=== PATIENT | male | born 1995 | race American Indian/Alaskan Native ===

== ENCOUNTER 2025-06-08 10:36 | Emergency (ER) | payer BC, SELFPAY ==
[2025-06-08 10:53] VITALS: BP 153/92; PULSE 86; RESP 20; TEMP 37.6; O2SAT 97; BMI 50.2
--- NOTE | 2025-06-08 12:28 | ED.GENADULT ---
HPI - General Adult General Chief complaint: Cough Stated complaint: respiratory/cough Time Seen by Provider: 06/08/25 12:17 History of Present Illness HPI narrative: Patient is a 29-year-old gentleman who has dog unfortunately likely has leptospirosis. Patient states that he has been coughing for the last 2 weeks. He is in today for further evaluation. Patient's comorbidities are minimal. He is an otherwise healthy although overweight 29-year-old man. He has had no fevers no chills no hemoptysis no nausea no vomiting. Patient has no overt shortness of breath or chest pain. Related Data Home Medications ?Medication ?Instructions ?Recorded ?Confirmed No Known Home Medications 06/08/25 06/08/25 Allergies Allergy/AdvReac Type Severity Reaction Status Date / [facility] All[facility] Rash Verified 06/08/25 10:58 Review of Systems Status of ROS: Reports: 10 or more systems reviewed and unremarkable except as noted in History and below Exam Narrative: Exam Narrative: EXAM GENERAL: Patient appears comfortable and well. EYES: No scleral icterus. LYMPH: No supraclavicular or cervical lymphadenopathy. SKIN: Visible skin seen during exam normal or with benign process only. EXT: No dependent lower extremity pedal edema. HEART: Regular rate and rhythm with no murmurs, rubs, or gallops. LUNGS: Clear to auscultation bilaterally with no crackles or wheezes. ABD: Soft, non tender, non distended. PSYCH: Good eye contact, speech is not pressured. Const: Vital Signs, click to edit/add: Vital Signs - 24 hr 06/08/25 10:53 Temperature 99.7 F H Pulse Rate [Pulse Oximeter] 86 Respiratory Rate 20 Blood Pressure [Ri ght Upper Arm] 153/92 H Pulse Oximetry 97 Oxygen Delivery Me thod Room Air Course Vital Signs Vital signs: Initial Vital Signs Temperature 99.7 F H 06/08/25 10:53 Temperature Source Oral 06/08/25 10:53 Pulse Rate 86 06/08/25 10:53 Pulse Rhythm Regular 06/08/25 10:53 Respiratory Rate 20 06/08/25 10:53 Blood Pressure 153/92 H 06/08/25 10:53 Blood Pressure Mean 112 H 06/08/25 10:53 Blood Pressure Position Sitting 06/08/25 10:53 Pulse Oximetry 97 06/08/25 10:53 Oxygen Delivery Method Room Air 06/08/25 10:53 Vital Signs Temperature 99.7 F H 06/08/25 10:53 Pulse Rate 86 06/08/25 10:53 Respiratory Rate 20 06/08/25 10:53 Blood Pressure 153/92 H 06/08/25 10:53 Pulse Oximetry 97 06/08/25 10:53 Oxygen Delivery Method Room Air 06/08/25 10:53 Temperature 99.7 F H 06/08/25 10:53 Pulse Rate 86 06/08/25 10:53 Respiratory Rate 20 06/08/25 10:53 Blood Pressure 153/92 H 06/08/25 10:53 Pulse Oximetry 97 06/08/25 10:53 Oxygen Delivery Method Room Air 06/08/25 10:53 Medical Decision Making MDM Narrative Medical decision making narrative: Patient is a 29-year-old with left us pyrosis exposure. I do not believe x-ray is indicated. I did query the lab and did appears to be do not do leptospirosis testing and blood cultures would be very unlikely to be helpful. I do think it is reasonable to put him on 7 days of doxycycline 100 mg b.i.d.. Give my card Ng follow-up with me on a p.r.n. basis. Discharge Plan Discharge Clinical Impression: Cough Patient Disposition: Home, Self-Care Condition: Stable Instructions: Acute Cough (ED) Additional Instructions: Symptomatic treatment Doxycycline as directed Follow-up with Dr. Figueroa as needed. Activity Level: No Restrictions Discharge Diet: Regular Prescriptions: No Action No Known Home Medications Stand Alone Forms: [employer] Info Instructions
--- OUTSIDE RECORDS SUMMARY | 2025-06-08 13:08 | XMS_ITS | Clinical Summary ---
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 Name Role Phone Pcp, No Primary Care Provider Unavailabl e Allergies Active Allergy Reactions Criticality Noted Date Comments Cefaclor Hives 12/22/2015 Medications No known medications Social History Tobacco Use Types Packs/Day Years Used Date Smoking Tobacco: Never Smokeless Tobacco: Never Tobacco Cessation:Counseling Given: Yes Alcohol Use Standard Drinks/Week Comments Yes 0 (1 standard drink = 0.6 oz pur e alcohol) occasional Sex and Gender Information Value Date Recorded Sex Assigned at Not on file Legal Sex Male 10:59 AM CDT Gender Identity Not on file Sexual Orientation Not on file Obstetrics History Last Filed Vital Signs Vital Sign Reading Time Taken Comments Blood Pressure 127/78 04/30/2016 3:18 PM CDT Pulse 86 04/30/2016 3:18 PM CDT Temperature 37 C (98.6 F) 04/30/2016 3:18 PM CDT Respiratory Rate - - Oxygen Saturation 99% 04/30/2016 3:18 PM CDT Inhaled Oxygen Concentration - - Weight 120.9 kg (266 lb 9.6 oz) 04/30/2016 3:18 PM CDT Height 172.4 cm (5' 7.87) 04/30/2016 3:18 PM CD T Body Mass Index 40.69 04/30/2016 3:18 PM CDT Plan of Treatment Upcoming Encounters Date Type Department Care Team (Late st Contact Info) Description 06/11/2025 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 [address] [place] [address] Gemini Mcmahon MD [address] [place] [address] Health Maintenance Due Date Last Done Comments Tetanus booster 2007 HIV for age 15-65 2011 Hepatitis C screening for ag e 18-79 2014 Hepatitis B series for 19+ ( 1 of 3 - 19+ 3-dose series) 2015 BMI (ht and wt on same day) for age 18+ 04/30/2017 04/30/2016, 12/22/2015 Depression screening for age 12+ 04/30/2017 04/30/2016 HPV series for age 9-45 (1 - 3-dose SCDM series) 2023 Influenza Vaccine (#1) 2025 RSV vaccine for adults or (1 - 1-dose 75+ series) 2071 Pneumococcal series for age 6-49 Aged Out No longer eligible b ased on patient's age to complete this topic Care Teams Primary Montessori Teacher Relationship Specialty Start Date End Date Pcp, No . PCP - General 12/22/15
--- OUTSIDE RECORDS SUMMARY | 2025-06-08 13:08 | XMS_ITS | Clinical Summary ---
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 [facility] Allergies Active Allergy Reactions Criticality Noted Date Comments Other Hives High 07/12/2024 Celecor Cephaclor. Medications clindamycin (CLEOCIN) 300 MG capsule Take 1 Capsule (300 mg) by mouth three times a day. 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 Gender Identity Not on file Sexual Orientation Not on file Plan of Treatment Health Maintenance Due Date Last Done Comments Hep C Screening (Preventive Services) 1996 HIV Screening (Preventive Services) 2012 Adult Preventive Visit 2014 DTaP/Tdap/Td Vaccine (1 - Tdap) 2015 HepB Vaccine (1) 2015 HPV Vaccine (1 - 3-dose SCDM series) 2023 COVID-19 Vaccine ( - 2023-2 5 season) 2025 Influenza Vaccine (#1) 2025 Zoster/Shingles Vaccine (1 of 2) 2046 HepA Vaccine Aged Out No longer eligi ble based on patient's age to complete this topic Hib Vaccine Aged Out No longer eligi ble based on patient's age to complete this topic IPV (Polio) Vaccine Aged Out No longe r eligible based on patient's age to complete this topic MCV4 Vaccine Aged Out No longer eligi ble based on patient's age to complete this topic Meningococcal B Vaccine Aged Out No l onger eligible based on patient's age to complete this topic Pneumococcal Vaccine Aged Out No long er eligible based on patient's age to complete this topic Insurance SELF INSURED
== END 2025-06-08 13:05 | disposition home or self-care (01) ==
LOC: ED 13:07
PROVIDERS: Emergency Provider Internal Medicine
DX: R05.9 Cough, unspecified (principal); A27.9 Leptospirosis, unspecified
CPT/HCPCS: 99283; 99284